=== PATIENT | female | born 1950 | race Caucasian/White ===

== ENCOUNTER → 2017-03-21 | Outpatient (CLI) | payer BC ==
[~2017-03-21] MED LIST: AZOR PO; CALC-388 PO; CETI10TA84 PO; CRAN1TAB PO; CYAN100T6 PO; FSM70 PO; HYZ/50125 PO; LEVO100T PO; POTA20TA13 PO; SYN75 PO
--- NOTE | 2017-03-21 17:10 | MAMMOGRAPHY REPORT ---
BILATERAL DIGITAL SCREENING MAMMOGRAM WITH CAD: 03/21/2017 CLINICAL HISTORY: Routine screening. Patient has no complaints. TECHNIQUE: Bilateral CC and MLO views were obtained. Current study was also evaluated with a Comput er Aided Detection (CAD) system. COMPARISON: Comparison is made to exams dated: 03/20/2016 mammogram, 03/18/2015 mammogram, 03/09/2014 mammogram, 03/07/2013 mammogram, 02/29/2012 mammogram - [facility], and 02/14/2008. BREAST COMPOSITION: There are scattered areas of fibroglandular density in both breasts. FINDINGS: There are a few benign rim calcifications within the left breast. No suspicious mass, arc hitectural distortion or cluster of microcalcifications is seen. IMPRESSION: ACR BI-RADS CATEGORY 1: NEGATIVE There is no mammographic evidence of malignancy. A 1 year screening mammogram is recommended. The p atient will receive written notification of the results. Approximately 10% of breast cancers are not detected with mammography. A negative mammographic repor t should not delay biopsy if a clinically suggestive mass is present. Ambreen Lopez M.D. ay/:03/21/2017 16:18:01 Endband Cutter Hand: Clara Gusman, [facility] letter sent: Normal 1/2 BI-RADS Code: ACR BI-RADS Category 1: Negative
== END | disposition home or self-care (01) ==
LOC: C.MAMM 14:02
PROVIDERS: ATTEND Family Medicine
DX: Z12.31 Encounter for screening mammogram for malignant neoplasm of breast (principal)

== ENCOUNTER 2017-09-02 12:51 | Emergency (ER) | payer BC ==
[~2017-09-02] VITALS: Ht 165.1 cm; Wt 73.5 kg
[~2017-09-02 12:51] MED LIST changes: -CALC-388 PO; -FSM70 PO; -HYZ/50125 PO; -POTA20TA13 PO; -SYN75 PO
[2017-09-02 13:11] VITALS: TEMP 36.9; Ht 165.1 cm; Wt 73.5 kg
[2017-09-02] MEDS ORDERED: POTA20TA13 PO (14:40)
[2017-09-02] MEDS ORDERED: FSM70 PO (14:40)
[2017-09-02] MEDS ORDERED: HYZ/50125 PO (14:40)
[2017-09-02] MEDS ORDERED: SYN75 PO (14:40)
[2017-09-02] MEDS ORDERED: CALC-388 PO (14:40)
--- NOTE | 2017-09-02 16:26 | DIAGNOSTIC IMAGING REPORT ---
L PELVIS/UNILATERAL HIP 2-3VIEWS CLINICAL HISTORY: 67 years-old Female presenting with left hip pain, fall, hx replacement. TECHNIQUE: Single frontal view of the pelvis and frontal and frog-leg lateral views of the left hip were obtained. COMPARISON: 02/23/2012. FINDINGS: Postsurgical changes of total hip arthroplasty noted bilaterally. Bony pelvis intact. Sacroiliac joints and pubic symphysis congruent. No hardware complication. No periprosthetic fracture. Mild degenerative changes in the lower lumbar spine. IMPRESSION: Expected postsurgical appearance status post bilateral total hip arthroplasty. No acute osseous injury. Electronically signed by: Jose Juan Jackson M.D. 09/02/2017 4:25 PM Dictated Date/Time: 09/02/2017 4:23 PM
--- NOTE | 2017-09-02 16:32 | DIAGNOSTIC IMAGING REPORT ---
R RIBS UNILATERAL WITH PA CHEST CLINICAL HISTORY: 67 years-old Female presenting with fall, right upper rib pain. TECHNIQUE: PA view of the chest and frontal and oblique views of the right ribs were obtained. COMPARISON: None. FINDINGS: No displaced rib fracture. Atherosclerosis of aortic arch. Cardiac silhouette normal in size. Lungs and pleural spaces clear. Upper abdomen remarkable for cholecystectomy clips. IMPRESSION: 1. No displaced right rib fracture. 2. No acute cardiopulmonary disease. Electronically signed by: Jose Juan Jackson M.D. 09/02/2017 4:30 PM Dictated Date/Time: 09/02/2017 4:28 PM
--- NOTE | 2017-09-02 16:43 | DIAGNOSTIC IMAGING REPORT ---
R ELBOW MIN 3 VIEWS ROUTINE CLINICAL HISTORY: 67 years-old Female presenting with fall, right elbow pain. TECHNIQUE: Frontal, oblique, and lateral views the right elbow were obtained. COMPARISON: None. FINDINGS: No elbow joint effusion. Elbow joint congruent. No acute fracture or malalignment. No radiographic evidence of soft tissue swelling. IMPRESSION: No acute osseous injury of the right elbow. Electronically signed by: Jose Juan Jackson M.D. 09/02/2017 4:42 PM Dictated Date/Time: 09/02/2017 4:41 PM
--- NOTE | 2017-09-02 16:50 | EMERGENCY ROOM VISIT NOTE ---
History First contact with patient: 14:21 Chief Complaint: FALL Stated Complaint: FELL OFF STEP STOOL- HIT VARIOUS PLACES History of Present Illness The patient is a 67 year old female who presents to the Emergency Room with complaints of a fall. The patient states that she was standing on a step stool , when she lost her footing and fell. She reports that she struck her anterior chest, right elbow and left hip. She is concerned because she has had a hip replacement in the past. She has been able to walk without difficulty. She rates her overall discomfort a 5/10. She denies any difficulty breathing. The patient denies any head or neck injury. Review of Systems A complete 10 point review of systems was reviewed with the patient with pertinent positives and negatives as per history of present illness. All else were negative. Past Medical/Surgical History Medical Problems: (1) Cardiac Dysrhythmias Nec (2) HTN (hypertension) Surgical Problems: (1) History of cholecystectomy Family History No pertinent family history Social History Smoking Status: Never Smoker Marital Status: Occupation Status: employed Current/Historical Medications Scheduled Alendronate Sodium (Alendronate Sodium), 70 MG PO WK Calcium Carbonate-Vitamin D (Calcium + D3 600-200 mg-Unit), 2 TABS PO DAILY Cetirizine (Zyrtec), 10 MG PO DAILY Cranberry (Vaccinium Macrocarp (Cranberry), 125 MG PO DAILY Hctz/Losartan (Hyzaar 12.5MG/50MG), 1 TAB PO DAILY Levothyroxine Sodium (Synthroid), 75 MCG PO QAM Potassium Chloride Microencaps (Potassium Chloride Er), 20 MEQ PO QAM Physical Exam Vital Signs Date Time Temp Pulse Resp B/P (MAP) Pulse Ox O2 Delivery O2 Flow Rate FiO2 09/02/17 17:00 82 18 190/100 99 09/02/17 13:11 36.9 82 18 135/82 99 Room Air Physical Exam VITALS: Vitals are noted on the nurse's note and reviewed by myself. Vital signs stable. GENERAL: This is a 67-year-old female, in no acute distress, nondiaphoretic, well-developed well-nourished. SKIN: The skin was without erythema, edema, or bruising. HEAD: Normocephalic atraumatic. EARS: External auditory canals clear, tympanic membranes pearly lazaro without erythema or effusion bilaterally. EYES: Pupils equal round and reactive to light and accommodation. Conjunctivae without injection, sclerae without icterus. Extraocular movements intact. MOUTH: Mucous membranes moist. NECK: Supple without nuchal rigidity. Cervical spine is nontender. HEART: Regular rate and rhythm without murmurs gallops or rubs. LUNGS: Clear to auscultation bilaterally without wheezes, rales or rhonchi. MUSCULOSKELETAL: There is mild tenderness to palpation of the lateral aspect of the right hip, the right elbow and the right sternal border. Full range of motion throughout. NEURO: Patient was alert and oriented to person place and time. Normal sensation to light and sharp touch. Deep tendon reflexes 2+ throughout. No focal neurological deficits. Medical Decision & Procedures ER Provider Diagnostic Interpretation: R RIBS UNILATERAL WITH PA CHEST IMPRESSION: 1. No displaced right rib fracture. 2. No acute cardiopulmonary disease. L PELVIS/UNILATERAL HIP 2-3VIEWS IMPRESSION: Expected postsurgical appearance status post bilateral total hip arthroplasty. No acute osseous injury. R ELBOW MIN 3 VIEWS ROUTINE IMPRESSION: No acute osseous injury of the right elbow. Medical Decision Differential diagnosis includes fracture, contusion, dislocation, sprain, among others. The patient is a 67-year-old female who presents today complaining of a fall. Multiple imaging studies were performed and were found to be negative. The patient declined analgesics. Conservative measures were discussed. She was able to walk without difficulty. All findings were discussed with the patient. She will follow-up with her primary care provider as needed. She verbalized understanding of my assessment and treatment plan and was discharged home in good condition. The patient was independently evaluated by Dr. Parks, ED attending physician, who agreed with my assessment and treatment plan. Medication Reconcilliation Current Medication List: was personally reviewed by id Blood Pressure Screening Patient's blood pressure: Elevated blood pressure Blood pressure disposition: Referred to PCP Impression Primary Impression: Fall Additional Impression: Contusion of multiple sites Departure Information Dispostion Home / Self-Care Condition GOOD Referrals Jami Quijano MD (PCP) Patient Instructions My [facility] Additional Instructions For pain control, you can use the following [id number] medicines (if >12 yo): - Regular strength (325mg/tab) Tylenol (acetaminophen) 2 tabs every 4-6 hours as needed. Do not exceed 12 tablets in a 24 hour period. Avoid taking more than 4 grams (4000 mg) of Tylenol per day. This includes any other sources of acetaminophen you may take on a regular basis. - Regular strength (200 mg/tab) Advil (ibuprofen) 1-2 tabs every 4-6 hours as needed. Do not exceed a dose of 3200 mg per day. Apply ice to any areas of pain. Follow-up with your primary care provider for further evaluation. Return to the emergency department with any worsening or new/concerning symptoms. Problem Qualifiers Primary Impression: Fall Encounter type: initial encounter Qualified Codes: W19.XXXA - Unspecified fall, initial encounter
[2017-09-02 17:00] VITALS: BP 190/100; PULSE 82; O2SAT 99
--- NOTE | 2017-09-03 03:05 | EMERGENCY ROOM VISIT NOTE ---
ED Visit Note First contact with patient: 14:21 HPI: Mechanical fall off of step stool. left hip, chest, elbow pain. PE: AFVSS, NAD, Well-appearing. NC/AT RRR, no murmurs CTAB Abd soft NT/ND Ext: no edema, erythema, mild left posterior hip ttp. L Hip and R elbow FROM intact. Mild right CW ttp. Neuro: grossly intact Plan: Xrays negative. Pcp f/u. I reviewed the patient's past medical history, medications, and visit nursing notes. I discussed the case with the physician marketing assistant retail division, examined the patient, and agree with the findings and plan as documented in the physician assistants note.
== END 2017-09-02 17:00 | disposition home or self-care (01) ==
LOC: C.EDB 12:53 → C.EDD 17:00
DX: T14.8XXA Other injury of unspecified body region, initial encounter (principal); W17.89XA Other fall from one level to another, initial encounter; M25.552 Pain in left hip; R07.9 Chest pain, unspecified; M25.521 Pain in right elbow; I10 Essential (primary) hypertension; Z90.49 Acquired absence of other specified parts of digestive tract; Z79.899 Other long term (current) drug therapy

== ENCOUNTER → 2017-10-23 | Outpatient (CLI) | payer BC ==
[~2017-10-23] MED LIST changes: -AZOR PO; +CALC-388 PO; -CYAN100T6 PO; +FSM70 PO; +GADOXETATE DISODIUM (NON-WT BASED PROCEDURE) IV PRN; +HYZ/50125 PO; -LEVO100T PO; +POTA20TA13 PO; +SYN75 PO
--- NOTE | 2017-10-23 08:39 | DIAGNOSTIC IMAGING REPORT ---
MRI OF THE ABDOMEN WITH AND WITHOUT CONTRAST CLINICAL HISTORY: Pancreatic lesion. Liver lesions. Follow-up. COMPARISON STUDY: Abdominal MRI 10/02/2016. TECHNIQUE: Utilizing a 1.5 Linda magnet and dedicated coil, multiplanar, multiecho imaging of the abdomen was performed pre and postcontrast administration. 10 cc of Eovist was injected. Post contrast imaging was performed utilizing dynamic enhancement. 20 minute delayed phase imaging was performed. FINDINGS: Liver morphology is normal. There is a stable 7 mm T2 hyperintense segment 8 hepatic lesion. This lesion is unchanged since MRI of August 05, 2014 and is therefore benign. This appears to demonstrate discontinuous peripheral nodular enhancement and likely represents a hemangioma but is difficult to characterize due to its small size. No additional hepatic lesions are present. There is no biliary ductal dilatation status post cholecystectomy. There is no pancreatic ductal dilatation. Numerous small T2 hyperintense nonenhancing lesions within the pancreas which communicate with the pancreatic duct are unchanged. No enhancing pancreas lesions are present. Several subcentimeter bilateral nonenhancing T2 hyperintense renal lesions are consistent with cysts. There are several splenules. There is no ascites or adenopathy within the abdomen. The gallbladder is surgically absent. IMPRESSION: 1. No change in the 7 mm T2 hyperintense right hepatic lobe lesion since earlier exams. Therefore, this lesion is benign. This likely represents a hemangioma. 2. 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 Electronically signed by: Christoph Mohr M.D. 10/23/2017 8:38 AM Dictated Date/Time: 10/23/2017 8:30 AM
== END | disposition home or self-care (01) ==
LOC: C.MRIBC 06:51
PROVIDERS: ATTEND Family Medicine
DX: D49.0 Neoplasm of unspecified behavior of digestive system (principal)

== ENCOUNTER → 2018-03-22 | Outpatient (CLI) | payer BC ==
[~2018-03-22] MED LIST changes: -GADOXETATE DISODIUM (NON-WT BASED PROCEDURE) IV PRN
== END | disposition home or self-care (01) ==
LOC: C.RDSM 15:00
PROVIDERS: ATTEND Physical Medicine & Rehabilitation Sports Medicine
DX: M25.552 Pain in left hip (principal)

== ENCOUNTER → 2018-03-22 | Outpatient (CLI) | payer BC ==
--- NOTE | 2018-03-25 07:48 | MAMMOGRAPHY REPORT ---
BILATERAL DIGITAL SCREENING MAMMOGRAM TOMOSYNTHESIS WITH CAD: 03/22/2018 CLINICAL HISTORY: Routine screening. Patient has no complaints. TECHNIQUE: Breast tomosynthesis in addition to standard 2D mammography was performed. Current study was also evaluated with a Computer Aided Detection (CAD) system. COMPARISON: Comparison is made to exams dated: 03/21/2017 mammogram, 03/20/2016 mammogram, 03/18/2015 m ammogram, 03/09/2014 mammogram, 03/07/2013 mammogram, and 02/29/2012 mammogram - [facility]. BREAST COMPOSITION: There are scattered areas of fibroglandular density in both breasts. FINDINGS: No suspicious masses, calcifications, or areas of architectural distortion are noted in ei ther breast. There has been no significant interval change compared to prior exams. IMPRESSION: ACR BI-RADS CATEGORY 1: NEGATIVE There is no mammographic evidence of malignancy. A 1 year screening mammogram is recommended. The pa tient will receive written notification of the results. Approximately 10% of breast cancers are not detected with mammography. A negative mammographic report should not delay biopsy if a clinically suggestive mass is present. iLndsey Carlson M.D. ah/:03/22/2018 14:54:58 Kiln Stacker: Bea BENITEZ(Sonia)(M), [facility] letter sent: Normal 1/2 BI-RADS Code: ACR BI-RADS Category 1: Negative
== END | disposition home or self-care (01) ==
LOC: C.MAMM 14:00
PROVIDERS: ATTEND Family Medicine
DX: Z12.31 Encounter for screening mammogram for malignant neoplasm of breast (principal)